=== PATIENT | female | born 1945 | race Caucasian/White ===

== ENCOUNTER 2025-05-17 11:57 | Inpatient (IN) | payer MEDICARE ==
[~2025-05-17] VITALS: Ht 167.6 cm; Wt 49.9 kg
[~2025-05-17 11:57] MED LIST: CITA20 PO; Celexa20 MG PO; DILT120; DONE5 PO; ESTR2; FOLBIC RF TABL1 EACH; IBUP800; OMEPRAZOLE MAGN20 MG; PRAV20; PRAVASTATIN SOD40 MG PO; VITAMIN D-32000 UNIT
[2025-05-17] MEDS ORDERED: NS 500 ML IV SCH (12:45)
[2025-05-17 12:51] LABS: BASOPHILS ABSOLUTE AUTO 0.04 K/mm3 (0.00-0.23); BASOPHILS PERCENT AUTO 0 % (0-2); EOSINOPHILS ABSOLUTE AUTO 0.01 K/mm3 (0.00-0.68); EOSINOPHILS PERCENT AUTO 0 % (0-6); Hematocrit 36.9 % (33.0-51.0); Hemoglobin 12.4 g/dL (11.5-16.0); IMMATURE GRAN ABSOLUTE AUTO 0.17 K/mm3 (0.00-0.10); IMMATURE GRAN PERCENT AUTO 1 % (0-1); LYMPHOCYTES ABSOLUTE AUTO 1.75 K/mm3 (0.84-5.20); LYMPHOCYTES PERCENT AUTO 8 % (21-46); MONOCYTES ABSOLUTE AUTO 0.91 K/mm3 (0.16-1.47); MONOCYTES PERCENT AUTO 4 % (4-13); Mean Corpuscular HGB Conc 33.6 g/dL (31.5-36.5); Mean Corpuscular Volume 90 fL (80-100); NEUTROPHILS ABSOLUTE AUTO 19.63 K/mm3 (1.96-9.15); NEUTROPHILS PERCENT AUTO 87 % (41-73); NRBC ABSOLUTE 0.00 K/mm3 (0.00-0.02); NRBC Auto 0.0 /100 WBC (0.0-0.2); Platelet Count 332 K/mm3 (150-400); RDW Coefficient Variation 12.6 % (11.7-14.2); RDW Standard Deviation 42.0 fL (35.1-46.3)
[2025-05-17 13:27] LABS: Source, Urine Straight Cath
[2025-05-17 13:30] LABS: Magnesium, Blood 2.0 mg/dL (1.6-2.4)
[2025-05-17 13:35] LABS: Bilirubin, Urine Neg (Neg); Color, Urine Yellow (P-Yellow); Glucose Qualitative, Urine Neg (Neg); Ketones, Urine 3+ (Neg); Leukocyte Esterase, Urine Neg (Neg); Protein, Urine 2+ (Neg); Specific Gravity, Urine 1.025 (1.003-1.022); Urobilinogen, Urine NORM (Normal)
[2025-05-17 13:40] LABS: Alanine Aminotransfer (ALT/SGP 74.0 U/L (12-78); Albumin, Blood 3.4 g/dL (3.4-5.0); Albumin/Globulin Ratio 0.9 (0.8-1.8); Anion Gap 15.0 mmol/L (3-11); Aspartate Aminotrans (AST/SGOT 144.0 U/L (12-37); Bilirubin, Total 0.8 mg/dL (0.1-1.0); Blood Urea Nitrogen 39.0 mg/dL (8-24); CO2, Blood 24.0 mmol/L (21-32); Calcium, Blood 9.5 mg/dL (8.5-10.1); Chloride, Blood 102.0 mmol/L (98-108); Creatinine, Blood 0.65 mg/dL (0.40-1.00); Globulin, Blood 3.7 g/dL (2.2-4.0); Glucose, Blood 124.0 mg/dL (70-99); Potassium, Blood 3.6 mmol/L (3.5-5.5); Sodium, Blood 137.0 mmol/L (136-145); Total Protein, Blood 7.1 g/dL (6.4-8.2)
[2025-05-17] MEDS ORDERED: NS 1,000 ML IV SCH ×2 (13:50→19:00)
[2025-05-17 13:56] LABS: Red Blood Cells, Urine 0-2 /hpf (0-2); White Blood Cells, Urine 0-2 /hpf (0-5)
[2025-05-17] MEDS ORDERED: FLU VACC TS2025(65UP)/MF59C/PF 45 MCG/0.5 ML SYRINGE IM SCH (18:25)
[2025-05-17] MEDS ORDERED: CefTRIAXone Sodium 1,000 MG in NS 100 ML IV SCH (19:00)
[2025-05-17 20:54] VITALS: BP 128/60
[2025-05-17 21:16] LABS: Prothrombin Time Results 11.4 Sec (9.7-11.5)
[2025-05-17 21:37] LABS: Anion Gap 10.0 mmol/L (3-11); Blood Urea Nitrogen 31.0 mg/dL (8-24); CO2, Blood 25.0 mmol/L (21-32); Calcium, Blood 8.6 mg/dL (8.5-10.1); Chloride, Blood 110.0 mmol/L (98-108); Creatinine, Blood 0.66 mg/dL (0.40-1.00); Glucose, Blood 81.0 mg/dL (70-99); Potassium, Blood 3.6 mmol/L (3.5-5.5); Sodium, Blood 141.0 mmol/L (136-145)
--- NOTE | 2025-05-17 22:50 | NUR ---
THIS NURSE SPOKE TO PT DAUGHTER IN ROOM. MED REC REVIEWED, PT NONCOMPLIANT WITH MEDS AT HOME, PT PCP AWARE OF NONCOMPLIANCE
[2025-05-18] VITALS (7 sets, daily range): BP systolic 108–123; BP diastolic 50–79
[2025-05-18 01:16] LABS: Anion Gap 13.0 mmol/L (3-11); Blood Urea Nitrogen 30.0 mg/dL (8-24); CO2, Blood 22.0 mmol/L (21-32); Calcium, Blood 8.2 mg/dL (8.5-10.1); Chloride, Blood 110.0 mmol/L (98-108); Creatinine, Blood 0.61 mg/dL (0.40-1.00); Glucose, Blood 75.0 mg/dL (70-99); Potassium, Blood 3.1 mmol/L (3.5-5.5); Sodium, Blood 142.0 mmol/L (136-145)
[2025-05-18] MEDS ORDERED: NS 1,000 ML IV SCH (02:00)
--- NOTE | 2025-05-18 06:08 | NUR ---
SHIFT SUMMARY PT A&OX3 AND ANSWERS QUESTIONS APPROPRIATELY. WHEN ASKED IF SHE KNEW ABOUT THE YEAR, PT STATES, "I HAVE NO NEED TO REMEMBER THE DATE AT MY AGE" ABLE TO ANSWER ALL OTHER QUESTIONS. PT ARRIVED ON UNIT AT 2039 VIA GURNEY AND WAS TRANSFERED TO THE BED VIA SLIDE SHEET. PT DOES NOT VOCALIZE PAIN AT THIS TIME. PT HAS CATHETER IN PLACE DRAINING TO GRAVITY AND SECURED W/ A STATLOCK. VSS, NO COMPLAINTS OF CP/PRESSURE OR SOB. NO ACUTE EVENTS AT THIS TIME. PT LEFT IN A POSITION OF SAFETY WITH FALL PRECAUTIONS IN PLACE AND CALL LIGHT IN REACH.
[2025-05-18 07:07] LABS: Anion Gap 12.0 mmol/L (3-11); Blood Urea Nitrogen 27.0 mg/dL (8-24); CO2, Blood 21.0 mmol/L (21-32); Calcium, Blood 8.2 mg/dL (8.5-10.1); Chloride, Blood 113.0 mmol/L (98-108); Creatinine, Blood 0.6 mg/dL (0.40-1.00); Glucose, Blood 74.0 mg/dL (70-99); Potassium, Blood 2.8 mmol/L (3.5-5.5); Sodium, Blood 143.0 mmol/L (136-145)
--- NOTE | 2025-05-18 07:55 | NUR ---
CALLED MD TO INFORM K LEVEL 2.8. LEFT VOICEMAIL
[2025-05-18] MEDS ORDERED: Potassium Chl 20MEQ/Water100ML 100 ML IV STA (08:10)
[2025-05-18] MEDS ORDERED: Enoxaparin 40 MG/0.4 ML SYR SC SCH (09:00)
--- NOTE | 2025-05-18 17:49 | NUR ---
SHIFT SUMMARY PT AOX4, COOPERATIVE, ABLE TO MAKE NEEDS KNOWN. 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 ON ROOM AIR. RUNNING NAKCL ALL SHIFT FOR LOW K. HYPOGLYCEMIC THIS AM, INFORMED , FOLLOWED ORDERS, RECHECKED CBG AND WITHIN RANGE. LUGO INTACT AND DRAINING TO GRAVITY. BED IN LOWEST POSITION, CALL LIGHT WITHIN REACH.
[2025-05-19 00:15] VITALS: BP 138/65
[2025-05-19 03:29] VITALS: BP 141/59
--- NOTE | 2025-05-19 04:43 | NUR ---
SHIFT SUMMARY A/OX2, BR AT THIS TIME D/T WEAKNESS. PT PULLED IV OUT THIS SHIFT. NEW IV PLACED, IV NS AND K INFUSING. LUGO PATENT AND DRAINING TO GRAVITY. TELE SR 70S. VSS, NO ACUTE CHANGES AT THIS TIME.
[2025-05-19 08:13] VITALS: BP 139/64
[2025-05-19 11:58] LABS: BASOPHILS ABSOLUTE AUTO 0.06 K/mm3 (0.00-0.23); BASOPHILS PERCENT AUTO 1 % (0-2); EOSINOPHILS ABSOLUTE AUTO 0.12 K/mm3 (0.00-0.68); EOSINOPHILS PERCENT AUTO 1 % (0-6); Hematocrit 34.2 % (33.0-51.0); Hemoglobin 11.7 g/dL (11.5-16.0); IMMATURE GRAN ABSOLUTE AUTO 0.04 K/mm3 (0.00-0.10); IMMATURE GRAN PERCENT AUTO 0 % (0-1); LYMPHOCYTES ABSOLUTE AUTO 1.81 K/mm3 (0.84-5.20); LYMPHOCYTES PERCENT AUTO 18 % (21-46); MONOCYTES ABSOLUTE AUTO 0.69 K/mm3 (0.16-1.47); MONOCYTES PERCENT AUTO 7 % (4-13); Mean Corpuscular HGB Conc 34.2 g/dL (31.5-36.5); Mean Corpuscular Volume 91 fL (80-100); NEUTROPHILS ABSOLUTE AUTO 7.19 K/mm3 (1.96-9.15); NEUTROPHILS PERCENT AUTO 73 % (41-73); NRBC ABSOLUTE 0.00 K/mm3 (0.00-0.02); NRBC Auto 0.0 /100 WBC (0.0-0.2); Platelet Count 248 K/mm3 (150-400); RDW Coefficient Variation 12.6 % (11.7-14.2); RDW Standard Deviation 42.0 fL (35.1-46.3)
[2025-05-19 12:45] LABS: Alanine Aminotransfer (ALT/SGP 67.0 U/L (12-78); Albumin, Blood 2.8 g/dL (3.4-5.0); Albumin/Globulin Ratio 0.8 (0.8-1.8); Anion Gap 8.0 mmol/L (3-11); Aspartate Aminotrans (AST/SGOT 100.0 U/L (12-37); Bilirubin, Total 0.5 mg/dL (0.1-1.0); Blood Urea Nitrogen 13.0 mg/dL (8-24); CO2, Blood 25.0 mmol/L (21-32); Calcium, Blood 8.5 mg/dL (8.5-10.1); Chloride, Blood 111.0 mmol/L (98-108); Creatinine, Blood 0.61 mg/dL (0.40-1.00); Globulin, Blood 3.3 g/dL (2.2-4.0); Glucose, Blood 157.0 mg/dL (70-99); Potassium, Blood 4.1 mmol/L (3.5-5.5); Sodium, Blood 140.0 mmol/L (136-145); Total Protein, Blood 6.1 g/dL (6.4-8.2)
--- NOTE | 2025-05-19 16:37 | NUR ---
PT AOX2 WITH CONFUSION. PT HAS BEEN A 1-2 PERSON TRANSFER. DAUGHTER HAS BEEN WITH PT MOST OF THE DAY WHICH HELPS WITH HER IMPULSIVENESS. PT CONTINUES TO HAVE LUGO. PT CURRENTLY RESTING IN BED WITH CALL LIGHT IN REACH AND BED ALARM IN PLACE. PT SEEMS TO BE MUCH MORE RESTLESS THE SHIFT GETS CLOSER TO THE END ABLE TO REDIRECT AT THIS TIME WILL CONTINUE TO MONITOR.
[2025-05-19 19:29] VITALS: BP 140/63
[2025-05-19 23:57] VITALS: BP 141/67
[2025-05-20 01:18] VITALS: BP 140/58
[2025-05-20 02:04] VITALS: BP 140/58
--- NOTE | 2025-05-20 05:55 | NUR ---
SHIFT SUMMARY PT ALERT TO SELF. PLESANTLY CONFUSED AND REDIRECTABLE. VERY IMPULSIVE SO BED ALARM ON DURING THE NIGHT. UP FREQUENTLY TO USE BSC. BED ALARM SOUNDED AND STAFF RESPONDED IMMEDIATLY. PT WAS FOUND SITTING ON FLOOR WITH KNEES TUCKED UNDER BOTTOM AND LEANING AGAINST BED. NO INJURIES NOTED AND VSS. PT ASSISTED BACK TO BED. ROBERT PLACED D/T IMPULSIVENSS AND FREQUENTLY ATTEMPTING OOB. NOTIFED AND ORDER GIVEN. KCL CONTINUING TO INFUSE. TYLENOL GIVEN AT BEGINING OF SHIFT FOR GENERALIZED PAIN. VSS. NO EVENTS ON TELE. BED ALARM ON. BED IN LOWEST POSITION AND CALL LIGHT IN REACH.
[2025-05-20 07:24] VITALS: BP 123/58
[2025-05-20 10:18] LABS: BASOPHILS ABSOLUTE AUTO 0.04 K/mm3 (0.00-0.23); BASOPHILS PERCENT AUTO 0 % (0-2); EOSINOPHILS ABSOLUTE AUTO 0.18 K/mm3 (0.00-0.68); EOSINOPHILS PERCENT AUTO 2 % (0-6); Hematocrit 34.1 % (33.0-51.0); Hemoglobin 11.5 g/dL (11.5-16.0); IMMATURE GRAN ABSOLUTE AUTO 0.04 K/mm3 (0.00-0.10); IMMATURE GRAN PERCENT AUTO 0 % (0-1); LYMPHOCYTES ABSOLUTE AUTO 1.65 K/mm3 (0.84-5.20); LYMPHOCYTES PERCENT AUTO 18 % (21-46); MONOCYTES ABSOLUTE AUTO 0.74 K/mm3 (0.16-1.47); MONOCYTES PERCENT AUTO 8 % (4-13); Mean Corpuscular HGB Conc 33.7 g/dL (31.5-36.5); Mean Corpuscular Volume 91 fL (80-100); NEUTROPHILS ABSOLUTE AUTO 6.50 K/mm3 (1.96-9.15); NEUTROPHILS PERCENT AUTO 71 % (41-73); NRBC ABSOLUTE 0.00 K/mm3 (0.00-0.02); NRBC Auto 0.0 /100 WBC (0.0-0.2); Platelet Count 249 K/mm3 (150-400); RDW Coefficient Variation 12.7 % (11.7-14.2); RDW Standard Deviation 42.2 fL (35.1-46.3)
[2025-05-20 11:20] LABS: Alanine Aminotransfer (ALT/SGP 64.0 U/L (12-78); Albumin, Blood 2.7 g/dL (3.4-5.0); Albumin/Globulin Ratio 0.8 (0.8-1.8); Anion Gap 10.0 mmol/L (3-11); Aspartate Aminotrans (AST/SGOT 68.0 U/L (12-37); Bilirubin, Total 0.6 mg/dL (0.1-1.0); Blood Urea Nitrogen 9.0 mg/dL (8-24); CO2, Blood 24.0 mmol/L (21-32); Calcium, Blood 8.6 mg/dL (8.5-10.1); Chloride, Blood 110.0 mmol/L (98-108); Creatinine, Blood 0.51 mg/dL (0.40-1.00); Globulin, Blood 3.5 g/dL (2.2-4.0); Glucose, Blood 179.0 mg/dL (70-99); Potassium, Blood 4.6 mmol/L (3.5-5.5); Sodium, Blood 139.0 mmol/L (136-145); Total Protein, Blood 6.2 g/dL (6.4-8.2)
[2025-05-20] MEDS ORDERED: NS 1,000 ML IV SCH (11:45)
--- NOTE | 2025-05-20 15:18 | NUR ---
2,120 ML CLEARED FROM IV PUMP, PREVIOUS SHIFT HAD NOT CLEAARED. CHANGING TO NS AT 100 ML/HR NOW
[2025-05-20 15:22] VITALS: BP 120/54
--- NOTE | 2025-05-20 19:41 | NUR ---
SUMMARY DR. LOW STARTED PT ON 25 MG SEROQUEL BID. AFTER AM DOSE PT HAD BEEN NAPPING ON AND OFF SINCE LUNCHTIME. HELD EVENING POTASSIUM DUE TO PT BEING TOO DROWSY, HER POTASSIUM WAS 4.6 TODAY. INITIAL IV WAS PAINFUL AND SO REPLACED. 2ND IV STARTED LEAKING THIS EVENING, WAS DC'D PASSED ON TO FIELD MARKETING LEAD THAT SHE WILL NEED A NEW IV. ROBERT RESTRAINT DC'D THIS AM. PT DOES NOT CALL APPROPRIATELY. 1 ASSIST TO BSC. WALKED IN HALLWAY WITH PHYSICAL THERAPY WITH FWW AND GAIT BELT.
[2025-05-20 20:16] VITALS: BP 124/57
[2025-05-21] VITALS (7 sets, daily range): BP systolic 116–136; BP diastolic 49–105
--- NOTE | 2025-05-21 05:38 | NUR ---
SHIFT SUMMARY PATIENT ALERT AND ORIENTED X 2, CONFUSED AT TIMES. PLEASANT AND COOPERATIVE DURING CARE. NO ACUTE CHANGES THROUGHOUT SHIFT. DENIES PAIN, SOB, AND CP MAKE NEEDS KNOWN. SELF REPOSITIONED DURING SHIFT. NORMAL SALINE INFUSING AT 100ML/HR. MEDICATED PER AUG. BED IN LOCKED AND IN LOWEST POSITION. CALL LIGHT WITHIN REACH.
[2025-05-21] MEDS ORDERED: QUET25 PO (11:52)
--- NOTE | 2025-05-21 19:54 | NUR ---
PT A&O X1-2, TO SELF AND KNOWS SHE'S IN A HOSPITAL. SOMETIMES CONFUSED HER DAUGHTER'S NAME. IMPULSIVE, BUT PLEASANT AND RE-DIRECTABLE. ROOM AIR. CONTINENT OF URINE. 1 PERSON SBA TO BSC. CHAIR AND FALL ALARM ON. TELE: SINUS 70-100. NO IV ACCESS ORDER. PT IS EATING/DRINKING WITH A GOOD APPETITE. PLAN IS FOR DISCHARGE TO [facility] TOMORROW.
[2025-05-22 00:15] VITALS: BP 119/49
[2025-05-22 04:46] VITALS: BP 129/59
--- NOTE | 2025-05-22 06:36 | NUR ---
SHIFT SUMMARY PATIENT ALERT AND ORIENTED X 2 AND CONFUSED . PLEASANT AND RECEPTIVE DURING CARE. NO ACUTE CHANGES THROUGHOUT SHIFT. DENIES PAIN, SOB, AND CP. SELF REPOSITIONED DURING SHIFT. MEDICATED PER AUG. BED LOCKED AND IN LOWEST POSITION. BED AND CHAIR ALARM ON. CALL LIGHT WITHIN REACH.
[2025-05-22 07:36] VITALS: BP 124/46
--- NOTE | 2025-05-22 12:10 | NUR ---
LATE ENTRY: 11:00AM DISCHARGE NOTE - PT WAS TRANSPORTED TO [facility] IN CARE OF [facility] VIA GURNEY TRANSPORT. PRIOR TO DISCHARGE, PT SHOWERED WITH ASSISTANCE FROM [facility] [facility]. ALL PERSONAL BELONGINGS RETURNED TO PT AND HER DAUGHTER ESSENCE. PT'S DISCHARGE PACKET WAS GIVEN TO [facility] STAFF. RN CALLED REPORT TO [facility] [phone], NURSE YANCI.
== END 2025-05-22 11:12 | DRG 558 ==
LOC: ER 11:57 → ERHOLD 11:58 → MEDS 11:58 → ENPENDDIS 05-21 13:15 → MEDS 05-22 11:12
PROVIDERS: Family Medicine; Internal Medicine; Student in an Organized Health Care Education/Training Program; ADMIT Student in an Organized Health Care Education/Training Program
PROC: 0T9B70Z Drainage of Bladder with Drainage Device, Via Natural or Artificial Opening (ICD-10-PCS; principal; 2025-05-17)
PROC: 3E03329 Introduction of Other Anti-infective into Peripheral Vein, Percutaneous Approach (ICD-10-PCS; 2025-05-17)
DX: M62.82 Rhabdomyolysis (principal); F03.B3 Unspecified dementia, moderate, with mood disturbance; M79.7 Fibromyalgia; I10 Essential (primary) hypertension; E86.0 Dehydration; E87.6 Hypokalemia; Z60.2 Problems related to living alone; E16.2 Hypoglycemia, unspecified; Z98.890 Other specified postprocedural states; Z90.710 Acquired absence of both cervix and uterus; Z98.42 Cataract extraction status, left eye; Z90.721 Acquired absence of ovaries, unilateral; Z88.2 Allergy status to sulfonamides; Z88.5 Allergy status to narcotic agent; Z79.899 Other long term (current) drug therapy; Z98.891 History of uterine scar from previous surgery
CPT/HCPCS: 36415; 51702; 51798; 70450; 72125; 74177; 80048; 80053; 81001; 82550; 82947; 83735; 85025; 85610; 85730; 87086; 93005; 93010; 96361; 96365-59; 96372; 96375; 97110; 97116; 97161; 97165; 97530; 97535; 99285-25; A9270; G0378; J0696; J1650; J3480; J7030; Q9967